=== PATIENT | female | born 1995 | race Caucasian/White ===

== ENCOUNTER 2018-01-28 03:26 | Inpatient (IN) ==
[2018-01-28] MEDS ORDERED: NALOXONE HCL 1 MG/1 ML SYRG IV PRN (03:47)
[2018-01-28] MEDS ORDERED: ONDANSETRON HCL/PF 2 MG/ML VIAL IV PRN (03:47)
[2018-01-28] MEDS ORDERED: BUPIVACAINE HCL/0.9 % NACL/PF 250 ML EP PRN (03:47)
[2018-01-28] MEDS ORDERED: RINGER'S SOLUTION,LACTATED 1,000 ML IV ONE (03:48)
[2018-01-28] MEDS ORDERED: OXYTOCIN/DEXTROSE 5%-WATER 30 UNITS/500 ML BAG IV ONE (03:48)
[2018-01-28] MEDS ORDERED: BUPIVACAINE HCL/PF 30 ML VIAL EP SCH (04:00)
--- NOTE | 2018-01-28 04:39 | ANES ---
Anesthesia Pre Procedure Eval Vitals/Labs: Last Vital Signs Temp 36.0 C 01/28/18 03:54 Pulse 92 01/28/18 03:54 Resp 16 01/28/18 03:54 BP 132/80 01/28/18 03:54 Pulse Ox 100 01/28/18 03:54 HOME MEDICATIONS Vits96/Iron Fum/Folic [ S] 1 tab PO DAILY 03/08/16 [Last Taken Unknown] levothyroxine 75 mcg tablet 75 mcg PO DAILY #30 tab 11/13/17 [Last Taken Unknown ] ferrous sulfate 325 mg (65 mg iron) tablet 325 mg PO DAILY tab 11/14/17 [Last Taken Unknown] sertraline 50 mg tablet 75 mg PO DAILY 30 Days #45 tab 01/06/18 [Last Taken Unknown] Allergies/Adverse Reactions: Allergies Allergy/AdvReac Type Severity Reaction Status Date / Time No Known Allergies Allergy Verified 01/28/18 03:47 - Planned Procedure Planned Procedure: LABOR Epidural Medication List Reviewed:: Yes Allergies Verified: Yes Medical History (Last Reviewed 12/15/17 @ 13:21 by Tata Lynn) Anemia Onset Date: 11/06/17 Anxiety Samuels's palsy affecting Onset Date: 07/25/17 Body piercing (infant) Onset Date: 04/23/17 Depression Hypothyroid Obesity Onset Date: 04/23/17 First trimester bleeding Onset Date: 06/24/17 Menorrhagia Onset Date: 04/23/17 Ovarian cyst Onset Date: Family History (Last Reviewed 12/15/17 @ 13:22 by Tata Lynn) Aunt Breast cancer Aunt Metastatic cancer Grandmother Breast cancer Colon cancer Father Tongue cancer Grandfather Diabetes Mother Alive and well - Family Anesthesia History Family History:: no untoward family reactions to anesthesia, no familial bleeding tendencies, no family history of clotting disorders, no family history of premature - Airway/Neck/Teeth Within Normal Limits:: Yes Mallampatti Score: 2 Thyromental (T-M) distance: > 6 cm Mandibulo Hyoid distance: > 3 cm - Respiratory Respiratory: lungs clear - Cardiovascular Tolerates Activity: Good Heart Sounds: S1 & S2 - Anesthesia Assessment and Plan ASA Class: PS, II Anesthesia Type Plan: Epidural
--- NOTE | 2018-01-28 05:00 | ANES ---
Anesthesia Procedure Note Procedure Note: ANESTHESIA PROCEDURE NOTE Date of Procedure: 01/28/2018. Time of procedure: 444. Performed by: Jean Musa CRNA [employer] Developer: None. Preprocedure diagnosis: Active labor. Post procedure diagnosis: Same. Procedure: Insertion of labor epidural. Indications: The patient is a 22 -year-old female in active labor requesting labor epidural for pain management. Findings: See below. Details of the procedure: The patient was placed in a sitting position. DuraPrep as well as Betadine swabs X3 was applied to the patient's back. Patient was then draped in a sterile fashion. Lidocaine 1% was infiltrated to the skin and subcutaneous tissues at the level of the L3-4 interspace. The epidural space was identified using a 18-gauge Tuohy needle with loss-of- resistance technique. Epidural catheter was inserted to a depth of 11 centimeters at skin. Negative test dose was elicited using 3 mL of 1.5% preservative-free lidocaine plus epinephrine 1 200,000. The epidural catheter was then taped and secured in place. A loading dose of 8 mL of 0.25% preservative-free bupivacaine was administered to the epidural catheter after negative aspiration for blood and CSF. EBL: Minimal. Fluids: N/A. Specimen: N/A. Post procedure condition: The patient tolerated the procedure well. No complications were noted. Thank you for this consultation. Jean Musa CRNA
--- NOTE | 2018-01-28 05:00 | ANES ---
Post Anesthesia Assessment - Vital Signs Vitals: Last Vital Signs Temp 36.0 C 01/28/18 03:54 Pulse 86 01/28/18 04:57 Resp 20 01/28/18 04:57 BP 128/76 01/28/18 04:57 Pulse Ox 100 01/28/18 04:57 Airway Patency: Normal - Mental Status Level Of Consciousness: Awake - N/V Assessment Nausea/Vomiting Presence: None Dehydration:: No
[2018-01-28] MEDS: OXYTOCIN/DEXTROSE 5%-WATER 30 UNITS/500 ML BAG IV ONE ×2 (05:40→06:41)
[2018-01-28] MEDS ORDERED: GLYCERIN/WITCH HAZEL LEAF 40 APPL BOX TP PRN (06:08)
[2018-01-28] MEDS ORDERED: oxyCODONE HCL/ACETAMINOPHEN 1 TAB TABLET PO PRN ×2 (06:08)
[2018-01-28] MEDS ORDERED: HYDROCORTISONE 30 APPL TUBE TP PRN (06:08)
[2018-01-28] MEDS ORDERED: BENZOCAINE/MENTHOL 81 SPRAY CAN TP PRN (06:08)
[2018-01-28] MEDS ORDERED: SENNOSIDES 8.6 MG TABLET PO PRN (06:08)
[2018-01-28] MEDS ORDERED: BISACODYL 10 MG SUPP.RECT RC PRN (06:08)
--- NOTE | 2018-01-28 06:21 | HP ---
Chief Complaint - Chief Complaint Date of Service: 01/28/18 Time of Service: 06:10 Chief Complaint: contractions History of Present Illness: 22 yo at 39 1/7 wks presents to L&D this am complaining of frequent painful contractions since around midnight. She denies any LOF, vaginal bleeding, or decreased movement. This complicated by anemia, Samuels's palsy, hypothyroid, and morbid obesity. RH negative Rubella immune GBS negative Medical History (Last Reviewed 12/15/17 @ 13:21 by Tata Lynn) Anemia Onset Date: 11/06/17 Anxiety Samuels's palsy affecting Onset Date: 07/25/17 Body piercing (infant) Onset Date: 04/23/17 Depression Hypothyroid Obesity Onset Date: 04/23/17 First trimester bleeding Onset Date: 06/24/17 Menorrhagia Onset Date: 04/23/17 Ovarian cyst Onset Date: ~2012 Family History: Family History (Last Reviewed 12/15/17 @ 13:22 by Tata Lynn) Aunt Breast cancer Aunt Metastatic cancer Grandmother Breast cancer Colon cancer Father Tongue cancer Grandfather Diabetes Mother Alive and well Social History: Preferred Language Telugu Psych History Hx of Anxiety Review Of Systems (GEN) - Review of Systems Generalized/Overall Review: Present: No Symptoms Reported EENTM: Present: No Symptoms Reported Respiratory: Present: No Symptoms Reported Cardiac: Present: No Symptoms Reported Abdominal: Present: No Symptoms Reported Genitourinary: Present: Other - contractions Musculoskeletal: Present: No Symptoms Reported Neurological: Present: No Symptoms Reported Skin: Present: No Symptoms Reported Endocrine: Present: No Symptoms Reported Immunizations: IMMUNIZATION HX Immunizations Up to Date No Allergies/Adverse Reactions: Allergies Allergy/AdvReac Type Severity Reaction Status Date / Time No Known Allergies Allergy Verified 01/28/18 03:47 Home Medications: HOME MEDICATIONS Vits96/Iron Fum/Folic [ S] 1 tab PO DAILY 03/08/16 [Last Taken Unknown] levothyroxine 75 mcg tablet 75 mcg PO DAILY #30 tab 11/13/17 [Last Taken Unknown ] ferrous sulfate 325 mg (65 mg iron) tablet 325 mg PO DAILY tab 11/14/17 [Last Taken Unknown] sertraline 50 mg tablet 75 mg PO DAILY 30 Days #45 tab 01/06/18 [Last Taken Unknown] Exam - Exam Vital Signs: Vital Signs - Last Taken Temp 36.0 C 01/28/18 03:54 Pulse 86 01/28/18 04:57 Resp 20 01/28/18 04:57 BP 128/76 01/28/18 04:57 Pulse Ox 100 01/28/18 04:57 Constitutional: Present: Alert, Oriented x3, Cooperative, Moderate distress ENT Exam: Present: hearing grossly normal Breasts: Present: Exam deferred Respiratory: Present: lungs clear, no respiratory distress Cardiovascular/Chest: Present: normal peripheral pulses, regular rate, rhythm, no edema Abdomen: Present: soft, no rebound tenderness, other - gravid /Rectal: Present: Other - cervix 4-5/90/-2, KS Extremity: Present: no pedal edema, no calf tenderness Skin Exam: Present: normal color, warm/dry, no cyanosis Lymphatic: Present: no adenopathy Neurologic: Present: normal mood/affect, oriented x 3 Appearance: Present: appropriate appearance, appropriate insight Eye contact: Present: cooperative, good eye contact Thoughts: Present: normal thought pattern Diagnostic Studies: NST reactive. FHT 135, reassuring. Contractions q 2-3 min. Membranes intact. Assessment/Plan - Assessment/Plan (1) Labor established Assessment: Admit for routine management of labor. Epidural PRN. 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
--- NOTE | 2018-01-28 06:28 | OR ---
Operative Report - Dictated Report Narrative: Spontaneous vaginal delivery of viable female at 0533 on 01/28/2018 with Apgars 8 and 8, weighing 3650 g in STAN position. Cord clamping delayed approximately 1 minute Placenta delivered complete, intact, with three vessel cord Estimated blood loss: less than 50 ml Anesthesia: epidural Lacerations: None The patient had spontaneous rupture of membranes at 0440 with thick meconium and variable decelerations to 80 bpm during the last few minutes of second stage of labor. History for MU Definition: * The number of deliveries resulting in a live the patient experienced prior to current hospitalization * The previous delivery of live twins or any live multiple gestation is considered one live event. *If primagravida or nulliparous is documented select zero for the number of previous live births. Live Events: 1
[2018-01-28] MEDS: IBUPROFEN 800 MG TABLET PO PRN ×3 (06:41→19:28)
[2018-01-28] MEDS ORDERED: IBUPROFEN 800 MG TABLET PO PRN (08:22)
[2018-01-28] MEDS ORDERED: RINGER'S SOLUTION,LACTATED 1,000 ML IV PRN (08:22)
[2018-01-28] MEDS: DOCUSATE SODIUM 100 MG CAPSULE PO SCH ×2 (10:56→19:28)
[2018-01-28] MEDS: SERTRALINE HCL 50 MG TABLET PO SCH (15:00)
[2018-01-28] MEDS: LEVOTHYROXINE SODIUM 75 MCG TABLET PO SCH (15:00)
[2018-01-29] MEDS: DOCUSATE SODIUM 100 MG CAPSULE PO SCH ×2 (01:57→12:57)
[2018-01-29] MEDS: IBUPROFEN 800 MG TABLET PO PRN ×2 (01:57→08:14)
[2018-01-29] MEDS: LEVOTHYROXINE SODIUM 75 MCG TABLET PO SCH (07:20)
[2018-01-29] MEDS: SERTRALINE HCL 50 MG TABLET PO SCH (08:12)
[2018-01-29 08:54] VITALS: BP 137/80
[2018-01-29] MEDS ORDERED: FERROUS SULFATE 325 MG TABLET PO SCH (09:00)
[2018-01-29] MEDS ORDERED: PRENATAL VITS96/IRON FUM/FOLIC 1 TAB TABLET PO SCH (09:00)
--- NOTE | 2018-01-29 09:04 | PN ---
Subjective - Date and Time Seen Date: 01/29/18 Time: 09:03 Objective - Vitals Vitals: Last Vital Signs Temp 35.8 C L 01/29/18 08:15 Pulse 85 01/29/18 08:15 Resp 15 01/29/18 08:15 BP 137/80 01/29/18 08:15 Pulse Ox 98 01/29/18 08:15 Patient denies complaints. Breast-feeding well. Desires early discharge. Lochia wnl Abdomen - soft, nontender Uterus - firm, at umbilicus - 1 No calf tenderness Impression: day #1 - s/p spontaneous vaginal delivery. Plan: Continue routine care. Routine discharge instructions given to patient and will discharge to home if pediatricians discharge baby today. Assessment/Plan - Problems/Diagnosis (1) Labor established Problem: Acute (2) Hypothyroid Problem: Chronic Qualifiers: Hypothyroidism type: acquired Qualified Code(s): E03.9 - Hypothyroidism, unspecified (3) Samuels's palsy affecting in second trimester Problem: Resolved (4) BMI 40.0-44.9, adult Problem: Chronic
== END 2018-01-29 13:45 | disposition home or self-care (01) | DRG 775 ==
LOC: OBCLINIC 03:26 → OB 03:45
PROVIDERS: ADMIT Obstetrics & Gynecology; ATTEND Obstetrics & Gynecology
CPT/HCPCS: 59025; 88307